=== PATIENT | male | born 1980 | race Caucasian/White ===

== ENCOUNTER → 2019-03-24 | Outpatient (CLI) | payer BC ==
--- NOTE | 2019-03-24 10:56 | PCVCIMAG ---
APPROVED REPORT Study performed: 03/24/2019 09:41:09 Exam: Stress Echocardiogram Indication: Chest pain Patient Location: Echo lab Stress Nurse: Ana Nuno RN Room #: 2 Status: routine Ht: 5 ft 9 in HR: 90 bpm BP: 138/90 mmHg Rhythm: NSR Medical History Medical History: HTN Cardiac Risk Factors: HTN Previous Cardiac Procedures: none Pretest Chest Pain Characteristics: No chest pain Exercise History: Physically active Procedure The patient underwent an Exercise Stress Test using the Jamie Protocol. Blood pressure, heart rate, and EKG were monitored. An Echocardiogram was performed by installer technician in four stages in quad fashion. At peak stress, four selected images were obtained and placed side by side with resting images for comparison. Stress Test Details Stress Test: Exercise stress testing was performed using a Jamie protocol. HR Resting HR: 90 bpmMax Heart Rate (APMHR): 181 bpm Max HR Achieved: 187 bpmTarget HR (85% APMHR): 153 bpm % of APMHR: 103 Recovery HR: 111 bpm HR response to stress: Normal HR response to stress BP Resting BP: 138/90 mmHg Max BP: 236/82 mmHg Recovery BP: 194/82 mmHg BP response to stress: hypertensive response to stress- patient off BP meds x 1 week, starting new med. ECG Resting ECG: Sinus Rhythm Stress ECG: Sinus Rhythm, nonspecific ST-T abnormalities ST Change: Non-ischemic Maximum ST Deviation: 0 mm Arrhythmia: occasional PVCs Recovery ECG: Sinus Rhythm, nonspecific ST-T abnormalities Recovery ST Change: Non-ischemic Recovery ST Deviation: 0 mm Recovery Arrhythmia: None Clinical Reason for Termination: Maximal effort Stress Symptoms: hypertension Exercise duration: 10 min 14 sec Highest Stage Achieved: Stage 4: 4.2 mph at 16% grade. Exercise capacity: 13.4 METs Overall Exercise Capacity for Age: Good Scale: Active Angina Score: None No complications. Stress ECG Conclusion The patient exercised according to the JAMIE protocol for 10:14 mins; achieving a work level of 13.4 METS. The resting heart rate of 90 bpm iglesia to a maximum heart rate of 187 bpm. This value represent 103% of the maximal, age-predicted heart rate. The resting blood pressure of 138/90 mmHg, iglesia to a maximum blood pressure of 236/82mmHg. The exercise test was stopped due to hypertension,fatigue . Gamble Treadmill Score is 10.0 which is Low risk. Pre-Stress Echo The resting Echocardiogram showed normal left ventricular contractility with an estimated Ejection Fraction of about 55-60%. Normal wall motion in all segments on baseline images. Post-Stress Echo The stress Echocardiogram showed normal left ventricular contractility with an estimated Ejection Fraction of about 65-70%. Normal augmentation of wall motion in all segments on post stress images. Clinical No clinical or ECG evidence for ischemia. Conclusion Clinical Response: Non-ischemic Exercise Capacity: Superior Stress ECG Response: Non-ischemic Stress Echo Images: Non-ischemic No clinical, EKG or echocardiographic evidence for ischemia. Hypertensive response to exercise No echocardiographic evidence for exercise induced ischemia. Normal stress echocardiogram with maximal exercise stress. Normal color doppler. No regurgitation or stenosis present on pulmonic, mitral, tricuspid or aortic valves. <Conclusion> No clinical, EKG or echocardiographic evidence for ischemia. Hypertensive response to exercise No echocardiographic evidence for exercise induced ischemia. Normal stress echocardiogram with maximal exercise stress. Normal color doppler. No regurgitation or stenosis present on pulmonic, mitral, tricuspid or aortic valves.
== END | disposition home or self-care (01) ==
LOC: PCVCIMAG 09:58
PROVIDERS: ATTEND Family Medicine
DX: R07.9 Chest pain, unspecified (principal); I10 Essential (primary) hypertension; Z88.6 Allergy status to analgesic agent
CPT/HCPCS: 93325; 93351